=== PATIENT | male | born 1975 | race Asian ===

== ENCOUNTER 2021-09-25 05:30 | Emergency (ER) | payer BC, OTHER ==
[2021-09-25 05:36] VITALS: PULSE 70; RESP 18; TEMP 97.7
--- NOTE | 2021-09-25 05:55 | ED ---
Back Pain HPI - General Chief Complaint: Back Pain/Injury Stated Complaint: Lower back pain Time Seen by Provider: 09/25/21 05:54 Source: patient, RN notes reviewed, old records reviewed Limitations: no limitations - History of Present Illness Initial Comments: This is a 46-year-old male to the emergency department for evaluation. Today patient presents for evaluation regards to back pain. Nontraumatic back pain patient denies any new trauma. Pain when he moves pain when he walks. Pain is severe. Patient does say can be started on his right illness tach he has seen in urgent care with no help MD Complaint: back pain -: days(s) (6) Similar Symptoms Previously: No Place: home, work Radiation: buttocks, flank Severity: moderate Severity scale (1-10): 7 Quality: sharp, aching Consistency: constant Improves With: none Worsens With: movement, sitting upright, walking Context: while lifting, turning/twisting, unknown Associated Symptoms: difficulty walking Treatments Prior to Arrival: NSAIDS, prescription analgesics - Related Data Previous Rx's Medication Instructions Recorded Ciprofloxacin HCl [Cipro] 500 mg PO Q12HR #14 tablet 05/16/14 metroNIDAZOLE [Flagyl] 500 mg PO Q8HR #30 tab 05/16/14 HYDROcodone/APAP 5-325MG [[place] 1 tab PO Q6HR PRN #12 tab 09/25/21 5-325] Allergies Allergy/AdvReac Type Severity Reaction Status Date / Time No Known Allergies Allergy Verified 09/25/21 05:36 Review of Systems ROS Statement: Those systems with pertinent positive or pertinent negative responses have been documented in the HPI. ROS Other: All systems not noted in ROS Statement are negative. Past Medical History Past Medical History: No Reported History History of Any Multi-Drug Resistant Organisms: None Reported Additional Past Surgical History / Comment(s): right knee, torn acl Past Anesthesia/Blood Transfusion Reactions: No Reported Reaction Past Psychological History: No Psychological Hx Reported Smoking Status: Current every day smoker Past Alcohol Use History: Rare Past Drug Use History: None Reported - Past Family History Father Family Medical History: Congestive Heart Failure (CHF), Hypertension Mother Family Medical History: Congestive Heart Failure (CHF), Hypertension General Exam Limitations: no limitations General appearance: alert, in no apparent distress Head exam: Present: atraumatic, normocephalic, normal inspection Eye exam: Present: normal appearance, PERRL, EOMI. Absent: scleral icterus, conjunctival injection, periorbital swelling ENT exam: Present: normal exam, mucous membranes moist Neck exam: Present: normal inspection. Absent: tenderness, meningismus, lymphadenopathy Respiratory exam: Present: normal lung sounds bilaterally. Absent: respiratory distress, wheezes, rales, rhonchi, stridor Cardiovascular Exam: Present: regular rate, normal rhythm, normal heart sounds. Absent: systolic murmur, diastolic murmur, rubs, gallop, clicks GI/Abdominal exam: Present: soft, normal bowel sounds. Absent: distended, tenderness, guarding, rebound, rigid Extremities exam: Present: normal inspection, full ROM, normal capillary refill. Absent: tenderness, pedal edema, joint swelling, calf tenderness Back exam: Present: tenderness, CVA tenderness (R), muscle spasm, paraspinal tenderness. Absent: full ROM Neurological exam: Present: alert, oriented X3, CN II-XII intact Psychiatric exam: Present: normal affect, normal mood Skin exam: Present: warm, dry, intact, normal color. 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 This was negative patient can be discharged home - Radiology Data Radiology results: report reviewed (CT abdomen and pelvis LS spine negative for acute disease), image reviewed Disposition Clinical Impression: Strain of lumbar region, Mid back pain, Mechanical back pain, Kidney stone on right side Disposition: HOME SELF-CARE Condition: Good Instructions (If sedation given, give patient instructions): Kidney Stones (ED), Acute Low Back Pain (ED) Prescriptions: HYDROcodone/APAP 5-325MG [[place] 5-325] 1 tab PO Q6HR PRN #12 tab PRN Reason: Pain Is patient prescribed a controlled substance at d/c from ED?: No Referrals: Cedric Berry DO [Primary Care Provider] - 1-2 days Henri Salinas MD [STAFF PHYSICIAN] - 1-2 days Time of Disposition: 06:55
[2021-09-25] MEDS ORDERED: KETOROLAC 15 MG/ML 1 ML VIAL IM STA (06:09)
[2021-09-25] MEDS ORDERED: HYDROcodone/APAP 5-325MG 1 EACH TAB PO STA (06:09)
--- NOTE | 2021-09-25 07:01 | CT ---
EXAMINATION TYPE: CT abdomen pelvis wo con DATE OF EXAM: 09/25/2021 COMPARISON: 05/14/2014 HISTORY: Back pain x 1 week, Gross hematuria. History of renal stones CT DLP: 509.8 mGycm Automated exposure control for dose reduction was used. Images obtained from the diaphragm to the floor the pelvis with no contrast. The lung bases are clear. No pleural effusion. Heart size is normal. No pericardial effusion. There a re some coronary artery calcification Liver or spleen stomach pancreas and gallbladder appear intact. The bile ducts are nondilated. There is no adrenal mass. Kidneys have normal size. There is no hydronephrosis. Ureters are not dilat ed. There is no retroperitoneal adenopathy. Appendix is posterior and appears normal. Bladder distend s smoothly. There is 4 mm calculus in the dependent urinary bladder on the right side. There is no mesenteric edema. No ascites or free air. No bowel obstruction the lumbar vertebrae have normal spacing and alignment. No compression fracture. Bony pelvis is intact. The hip joints are inta ct. IMPRESSION: Right-sided bladder calculus. No definite ureteral calculus. A ureteral calculus at the orifice not e ntirely excluded. No hydronephrosis. There is clearing of the inflammatory changes around the cecum c ompared to old exam.
[2021-09-25 07:09] VITALS: BP 118/70
== END 2021-09-25 07:13 | disposition home or self-care (01) ==
LOC: EC 05:30
DX: S39.012A Strain of muscle, fascia and tendon of lower back, initial encounter (principal); N20.0 Calculus of kidney; F17.200 Nicotine dependence, unspecified, uncomplicated; X58.XXXA Exposure to other specified factors, initial encounter
CPT/HCPCS: 74176; 99284; 96372; J1885